=== PATIENT | female | born 1945 | race Caucasian/White ===

== ENCOUNTER → 2021-11-23 | Outpatient (CLI) | payer MEDICARE, OTHER ==
[~2021-11-23] MED LIST: AMLODIPINE BESY10 MG PO; ASPIRIN EC81 MG PO; ATORVASTATIN CA20 MG PO; ECOTRIN81 MG PO; LIPITOR TAB 2020 MG PO; LOPRESSOR 25 MG25 MG PO; MECLIZINE HCL25 MG PO; METOPROLOL TART25 MG PO; NITROSTAT 0.40.4 MG SL; NORVASC 5 MG TAB5 MG PO; PANTOPRAZOLE SO40 MG PO; PROTONIX40 MG PO; ROPINIROLE HCL0.5 MG PO; ZANTAC150 MG PO; ZOFRAN4 MG PO
== END ==
LOC: KOH-I 15:04
DX: E78.5 Hyperlipidemia, unspecified (principal); I10 Essential (primary) hypertension
CPT/HCPCS: 71046

== ENCOUNTER → 2021-11-30 | Outpatient (CLI) | payer MEDICARE, OTHER ==
[~2021-11-30] MED LIST changes: +TYLENOL 8 HOUR650 MG PO; +VALISONE 0.1% O15 GM TOP; +WOMEN'S DAILY1 EAC1 PO
== END ==
LOC: ECHO 09:15
DX: I25.10 Atherosclerotic heart disease of native coronary artery without angina pectoris (principal); R06.02 Shortness of breath; R00.1 Bradycardia, unspecified
CPT/HCPCS: ECHO; 78452; 93017; 93306; J2785

== ENCOUNTER → 2021-11-30 | Outpatient (CLI) | payer MEDICARE, OTHER ==
[2021-11-30 13:43] LABS: HEMOGLOBIN 13.6 gm/dl (12.3-15.3); RED BLOOD COUNT 4.09 M/UL (4.00-5.10); WHITE BLOOD COUNT 7.4 K/UL (4.5-11.0)
[2021-11-30 14:06] LABS: BUN/CREATININE RATIO 24 (0-10)
== END ==
LOC: OPSV2 09:51
PROVIDERS: Obstetrics & Gynecology
DX: Z01.812 Encounter for preprocedural laboratory examination (principal); N81.4 Uterovaginal prolapse, unspecified
CPT/HCPCS: 80053; 81001; 85025